=== PATIENT | male | born 1975 | race Caucasian/White ===

== ENCOUNTER 2017-11-16 12:30 | Day surgery (SDC) | payer OTHER ==
[2017-11-16] MEDS ORDERED: PROPOFOL 20 ML (14:52)
[2017-11-16] MEDS ORDERED: MIDAZOLAM 1 MG/ML 2 ML INJ (14:52)
[2017-11-16] MEDS ORDERED: FENTAnyl 50 MCG/ML VIAL (14:53)
== END 2017-11-16 16:30 | disposition home or self-care (01) ==
LOC: GIL 12:30
DX: K29.30 Chronic superficial gastritis without bleeding (principal); E78.5 Hyperlipidemia, unspecified
CPT/HCPCS: 43239; 88305; 88312